=== PATIENT | female | born 1980 | race Two or more races ===

== ENCOUNTER 2022-08-19 19:20 | Emergency (ER) | payer OTHER ==
[2022-08-19 19:34] VITALS: BP 133/82; PULSE 84; RESP 16; TEMP 98.9; BMI 26.3
== END 2022-08-19 19:51 | disposition home or self-care (01) ==
LOC: FER 19:20
DX: Z77.21 Contact with and (suspected) exposure to potentially hazardous body fluids (principal)
CPT/HCPCS: 99282-25